=== PATIENT | male | born 1945 | race Caucasian/White ===

== ENCOUNTER → 2017-06-22 | Outpatient (CLI) | payer MEDICARE, OTHER ==
[~2017-06-22] MED LIST: ASPIRIN325 PO; ATENOLOL 50MG T50 M1 PO; ATORVASTATIN CA40 MG PO; FENOFIBRATE40 MG PO; FLEXERIL PO; HYDROCODONE-AP1 EAC6 PO; LISINOPRIL10 MG PO; NORVASC5 MG PO; OXYCODONE HCL 55 MG PO; SYNTHROID100 MCG PO; XANAX 0.5 MG0.5 MG PO
== END ==
LOC: M.MRI 07:38
DX: M54.16 Radiculopathy, lumbar region (principal); M51.26 Other intervertebral disc displacement, lumbar region; M47.896 Other spondylosis, lumbar region; M71.38 Other bursal cyst, other site; E03.9 Hypothyroidism, unspecified; I10 Essential (primary) hypertension; E78.5 Hyperlipidemia, unspecified; Z95.1 Presence of aortocoronary bypass graft; K40.90 Unilateral inguinal hernia, without obstruction or gangrene, not specified as recurrent

== ENCOUNTER → 2017-11-09 | Outpatient (CLI) | payer MEDICARE, OTHER ==
--- NOTE | 2017-11-29 13:50 | PAINCON ---
[address] [address] PAIN MANAGEMENT CONSULTATION Name: TRACY KWONG Brenton [facility] [id number] Admission: 11/09/17 Attend Phys: Lesia Zayas MD Discharge: Date of : 44 Report #: [id number] THIS REPORT FOR: //name// CC: Camron Zayas DATE OF SERVICE: 11/09/2017 CHIEF COMPLAINT: Pain in the middle back has been getting worse over the last 6 months. HISTORY OF PRESENT ILLNESS: The patient is a 72-year-old gentleman who has been referred to the pain clinic for evaluation. The patient states that he has been having some problems with his back. He described it as severe. It is worse with activities of daily living such as standing, walking, shaving, standing at the sink, standing in line in the shopping centers, and prolonged walking. Pain is better if he sits down after about 5-10 minutes. Notes that the pain can reoccur after he stands up for a period of time. Describes this discomfort as a 9/10. It significantly impacts his ability to engage in some activities. He has been told that he has had some stenosis in his back. He has not had back surgery. Notes that if he stands and leans forward that he has less pain and discomfort. Notes that if he walks in a forward leaning position that he has less discomfort and can walk for a longer period of time. He has had some numbness in his left leg. Epidural steroid injections at that time did decrease the pain and discomfort down in his left leg, but he still has a residual low back pain and discomfort. MEDICATIONS: Ramipril, simvastatin, alprazolam 0.5 mg b.i.d., Norvasc 5 mg at bedtime, aspirin 325 mg at bedtime, atenolol 50 mg b.i.d., Lipitor 40 mg at bedtime, Flexeril 10 mg b.i.d., hydrocodone 5/325 q.6 hours 2 tablets p.r.n. as needed, levothyroxine 0.1 mg, and Zestril 10 mg. PAST MEDICAL HISTORY: Anxiety, thyroid disease, GERD, hyperlipidemia, and hypertension. PAST SURGICAL HISTORY: Open heart surgery in 2001 and hernia repair in 2017. SOCIAL HISTORY: He is retired, not working at this juncture. Denies use of tobacco. Drinks about one alcoholic beverage per day. FAMILY HISTORY: Cancer in mother. REVIEW OF SYSTEMS: Twelve-point review. Generally in good health, recent weight changes, fatigue, wears glasses, blurred vision, hearing loss, heart trouble, shortness of breath with walking flat, swelling of ankles and feet, loss of appetite, frequent urination, awakens at night to urinate; [place] [address] PAIN MANAGEMENT CONSULTATION Name: TRACY KWONG Room: [facility]#: [id number] Admission: 11/09/17 Attend Phys: Lesia Zayas MD Discharge: Date of : 44 Report #: [id number] pain/joint stiffness/swelling, weakness of muscles and joint, muscle pain/cramping, back pain, difficulty walking, rash and itching, changes in hair and nails, numbness and tingling sensation, nervousness, and depression. LABORATORY DATA: MRI of the lumbar spine dated 06/22/2017: 1. There is a mild diffuse posterior disk bulge. There is ohhj-tr-pxbqoqcx bilateral facet arthrosis. There is no significant central canal stenosis or neural foraminal stenosis. 2. L2-L3. There is mild diffuse disk bulge. There is awojakys-mp-qthmiv bilateral facet arthrosis. There is no significant central canal stenosis. There is mild right and tcuq-cz-nnjgtzap medial left neural foraminal stenosis due to foraminal disk bulging and facet spurring. 3. L3-L4. There is mild diffuse disk bulge. There is severe bilateral facet arthrosis and spurring. There is no significant central canal stenosis. There is jheerbwj-aj-jpppcv right and qohyysnv-ho-sczhtx left neural foraminal stenosis due to facet spurring and foraminal disk bulging. 4. L4-L5. There is mild diffuse disk bulge. There is severe bilateral facet arthrosis. There is foraminal disk bulging and facet spurring resulting in moderate medial bilateral neural foraminal stenosis. There is a 4 x 5 x 6 mm synovial cyst projecting medially from the right facet joint effacing the descending right L5 and S1 nerve roots. 5. L5-S1. There is no significant disk bulge or protrusion identified. There is moderate bilateral facet arthrosis. PAIN CLINIC ASSESSMENT: 1. The patient has some arthritic changes in the lower portion of his back, is not being treated for rheumatoid arthritis. 2. Pain intensity 9/10. 3. Risks for falling. The patient has not fallen in the last 3 months. 4. Blood thinner. The patient is not on a blood thinning medication. 5. History of hypertension. The patient is being treated for hypertension. 6. Opioid greater than 6 weeks. The patient states that he has not been using hydrocodone significantly over the past 6 weeks. He has run out of medication. 7. Risk assessment tool, low for opioid use. 8. Recreational drug use. The patient denies use of recreational drugs. 9. Tobacco: The patient denies use of tobacco. 10. Alcohol: The patient drinks 1 alcoholic beverage daily. PHYSICAL EXAMINATION: VITAL SIGNS: Blood pressure 130/58, heart rate 90, respiratory rate 16, room air saturation 93%, and temperature 98.1 GENERAL: The patient is a well-developed white male. He appears his stated age. Affect is appropriate. He is alert and oriented x 3. Height 5 feet 9 inches, weight 192 pounds, and BMI is 28. HEENT: Normocephalic, atraumatic. Extraocular eye muscles intact. Hearing generally within normal limits. [place]uc[place] [address] PAIN MANAGEMENT CONSULTATION Name: TRACY KWONG Room: [facility]#: [id number] Admission: 11/09/17 Attend Phys: Lesia Zayas MD Discharge: Date of : 44 Report #: [id number] NECK: Without adenopathy or JVD. HEART: S1, S2, somewhat distant tones. LUNGS: Clear to auscultation without crackles or rales. A well-healed scar in the anterior sternal area. EXTREMITIES: Upper extremity, muscle strength is judged to be 5/5 for the upper extremity for a 72-year-old gentleman. No significant sensory changes are noted. ABDOMEN: Protuberant. MUSCULOSKELETAL: The patient walks with a forward leaning gait. He is not walking with a cane. Lower extremity muscle strength is judged to be generally 5/5 for the major muscle groups difficult to assess knee jerk or ankle jerks. Muscles appeared to be symmetrical and same with similar muscle bulk. The patient states that he was having pain that was radiating down into his right leg. That portion has improved since the epidural steroid injections. IMPRESSION: 1. History of lumbar radicular pain with spinal stenosis. The patient states that he has undergone a series of epidural steroid injections. He has noted that the pain from his low back area, which radiated down into his leg has improved. Still has some pain and discomfort, which is across the lower portion of his back. Pain is worse when he stands. 2. Hypertension. 3. Hypothyroidism. 4. Osteoarthritis of the spine with history of radiculopathy, generalized osteoarthritis. RECOMMENDATIONS: We discussed treatment options with the patient. We explained the pathophysiology, usual algorithm, and treatment of spinal stenosis. The patient states that he continues to have some back pain. He notes that if he leans forward that he has less pain and discomfort. Notes that when he sits down pain decreases. He seems to have a clear picture of pathophysiology of spinal stenosis. We showed him how that if he were to stand with 1 leg on a small step this would change ankle/tilt his pelvis, which could open up the spaces and enable him to stand for a longer period of time when he is trying to get activities done. The patient states that he has gone to the epidural steroid injections. Noted that the radicular pain improved, but still has pain when he is engaged in activities such as standing erect, shopping, and engaging in activities of daily living. The option of using pain medications to control the pain as reasonably as possible. If at some point the pain medications are no longer efficacious, the patient could seek the advice of a surgeon regarding the possibility of improving his condition. The patient has some concerns about use of hydrocodone. He states that he was unable to purchase it. States that it costs about $11 a month. He did not have the wherewithal to purchase it. At this juncture, he and I have come to the agreement that probably an epidural steroid injection would probably not provide any long-term benefit given that in the last 6 months he has had a series of epidural steroid injections. He did [address] [address] PAIN MANAGEMENT CONSULTATION Name: TRACY KWONG Room: [facility] Rickey.#: [id number] Admission: 11/09/17 Attend Phys: Lesia Zayas MD Discharge: Date of : 44 Report #: [id number] get relief from the radicular pain that was associated with his scoliosis, but continues to have the back pain that is associated with it. We would recommend that he continue on a more conservative approach using the hydrocodone. After he reaches a level that these medications are no longer effective and he is no longer able to participate in activities to the level that he would like, he should then consider a surgical option. <ELECTRONICALLY SIGNED> By: Lesia Zayas MD 11/29/17 1350 [id number]. David Zayas MD /[facility]
== END ==
LOC: M.PC 04:35
DX: M47.896 Other spondylosis, lumbar region (principal); I10 Essential (primary) hypertension; E03.9 Hypothyroidism, unspecified

== ENCOUNTER → 2018-03-01 | Outpatient (CLI) | payer MEDICARE, OTHER | LOC: M.RAD 09:28 | DX: M47.27 Other spondylosis with radiculopathy, lumbosacral region (principal); M41.86 Other forms of scoliosis, lumbar region; I10 Essential (primary) hypertension; E03.9 Hypothyroidism, unspecified; J98.4 Other disorders of lung; M48.061 Spinal stenosis, lumbar region without neurogenic claudication; M25.78 Osteophyte, vertebrae; M15.9 Polyosteoarthritis, unspecified; F41.1 Generalized anxiety disorder ==

== ENCOUNTER → 2018-04-30 | Outpatient (CLI) | payer MEDICARE, OTHER | LOC: M.MRI 07:52 | DX: M48.061 Spinal stenosis, lumbar region without neurogenic claudication (principal); M51.26 Other intervertebral disc displacement, lumbar region; M47.27 Other spondylosis with radiculopathy, lumbosacral region; E03.9 Hypothyroidism, unspecified; I10 Essential (primary) hypertension; G89.29 Other chronic pain; Z68.25 Body mass index [BMI] 25.0-25.9, adult ==

== ENCOUNTER → 2018-08-28 | Outpatient (CLI) | payer MEDICARE, OTHER ==
--- NOTE | ~2018-08-28 | PAINCON ---
[address] [address] PAIN MANAGEMENT CONSULTATION Name: TRACY KWONG Brenton Room: [facility] RickeyGeno#: [id number] Admission: 08/28/18 Attend Phys: Lesia Zayas MD Discharge: Date of : 44 Report #: [id number] THIS REPORT FOR: //name// CC: Camron Zayas DATE OF SERVICE: 08/28/2018 CHIEF COMPLAINT: Return of lumbar pain. FOLLOWUP HISTORY: The patient is a 73-year-old gentleman who has been seen in the Pain Clinic in the past and undergone an epidural steroid injection. He returns today indicating that he continues to have pain, which is still problematic. He rates his pain as a 6/10. He has had low back pain for years. He has not had surgery. Notes his pain is worse when he is getting up, getting off the bed is worse. Walking sometimes helps decrease his pain. Pain has increased since the last visit in 10/2017. He has returned today for an injection. Also, has some pain across the top of his pelvis. He feels that his medication of hydrocodone and Flexeril are beneficial. Feels that his pain is about 25%, controlled with his current regimen. ALLERGIES: SIMVASTATIN, RAMIPRIL. PAIN CLINIC ASSESSMENT AND PQRS: 1. The patient has some arthritic changes in the lower portion of his back. He is not being treated for rheumatoid arthritis. 2. Pain intensity is 6/10. 3. Fall history. The patient has not fallen in the last 3 months. 4. Blood thinner. The patient is not on a blood thinning medication. 5. Hypertension. The patient is being treated for hypertension. 6. Opioids greater than 6 weeks. The patient has been receiving his opioid medications from his primary. 7. Risk assessment tool, low for opioid use. 8. Recreational drug use. The patient denies use of recreational drugs. 9. Tobacco: The patient denies use of tobacco. 10. Alcohol: The patient drinks 1 alcoholic beverage daily. PHYSICAL EXAMINATION: GENERAL: The patient is a well-developed, well-nourished white male. Appears his stated age. He is alert and oriented x 3. His affect is appropriate. Speech is fluent. HEENT: Normocephalic, atraumatic. Extraocular eye muscles intact. Sclerae nonicteric. Mucous membranes are moist. NECK: Without adenopathy or JVD. HEART: Regular rate. S1, S2. Distant tones. LUNGS: Clear to auscultation without crackles or rales. [place] [address] PAIN MANAGEMENT CONSULTATION Name: TRACY KWONG Room: [facility]#: [id number] Admission: 08/28/18 Attend Phys: Lesia Zayas MD Discharge: Date of : 44 Report #: [id number] the anterior sternal area. ABDOMEN: Protuberant. Bowel sounds present. EXTREMITIES: Upper extremity muscle strength is judged to be 5-/5 for the major muscles in the upper extremity. MUSCULOSKELETAL: The patient walks with a forward leaning gait. Lower extremity muscle strength is judged to be 5-/5 for the major muscle groups in the lower extremity. The patient complains of pain and discomfort, which is radiating down into the L4-L5 dermatomal distribution. IMPRESSION: 1. History of lumbar radicular pain with spinal stenosis. 2. The patient has undergone epidural steroid injection in the past and found that these were beneficial. 3. Hypertension. 4. Hypothyroidism. 5. Osteoarthritis of the spine with history of radiculopathy and generalized osteoarthritis. RECOMMENDATIONS: We discussed treatment options with the patient. Risks and benefits of an epidural steroid injection were again discussed. He has gleaned benefits from these in the past. He has returned today with a desire to undergo another injection. A script for his medications of opioid will be provided by his primary. We will proceed with an epidural steroid injection. The risks and benefits which could include but are not limited to infection, worsening of pain, no improvement in pain, spinal headache, nerve damage, paralysis were discussed and the patient elects to proceed. PROCEDURE NOTE: The patient was taken to the procedure area. He was assisted in getting on the examination table. Fluoroscopy using anterior, posterior as well as lateral viewing were implemented. The patient's back was sterilely prepped with a Betadine solution. It was allowed to dry. A 25-gauge needle using the midline approach at the L4-L5 interspace was provided. A 17-gauge Tuohy with loss of resistance technique using a right paramedian approach was undertaken at L4-L5. Aspiration was negative. A total of 80 mg of Depo-Medrol, 40 mg of triamcinolone and 2 mL of 0.25% bupivacaine was injected. The patient tolerated the procedure well. There were no complications. He remained in the pain clinic for an appropriate amount of time. We would like to thank you for letting us participate in his care. We hope he continues to improve. By: [id number]. David Zayas MD /[facility]
== END | disposition home or self-care (01) ==
LOC: M.PC 08:40
DX: M54.16 Radiculopathy, lumbar region (principal); G89.29 Other chronic pain; M48.061 Spinal stenosis, lumbar region without neurogenic claudication; I10 Essential (primary) hypertension; E03.9 Hypothyroidism, unspecified; M19.90 Unspecified osteoarthritis, unspecified site; Z88.8 Allergy status to other drugs, medicaments and biological substances; Z79.899 Other long term (current) drug therapy; Z79.82 Long term (current) use of aspirin; Z98.890 Other specified postprocedural states

== ENCOUNTER → 2018-10-02 | Outpatient (CLI) | payer MEDICARE, OTHER ==
--- NOTE | ~2018-10-02 | PAINCON ---
[address] [address] PAIN MANAGEMENT CONSULTATION Name: TRACY KWONG Brenton [facility] [id number] Admission: 10/02/18 Attend Phys: Lesia Zayas MD Discharge: Date of : 44 Report #: [id number] THIS REPORT FOR: //name// CC: Camron Zayas DATE OF SERVICE: 10/02/2018 CHIEF COMPLAINT: Low back pain. The injection helped. I am having pain in the left leg. There is some discomfort in the right groin. Pain is 4/5 now. HISTORY: The patient is a 73-year-old gentleman who has been followed in the pain clinic because of lumbar radiculopathy. He is having some pain and discomfort in his low back area. The pain is radiating around into the anterior portion of his right groin. Notes that the pain is worse with walking, standing, and climbing stairs. He feels the pain improves with use of medications, heat, and rest. He feels that his pain is about 40% improved. He would like to proceed with another epidural steroid injection today. ALLERGIES: SIMVASTATIN AND RAMIPRIL. PAIN CLINIC ASSESSMENT AND PQRS: 1. The patient has some arthritic changes in the lower portion of his back. He has not been treated for rheumatoid arthritis. 2. Height 5 feet 9 inches, weight 159 pounds, BMI is 23.5. 3. Vital signs; blood pressure 111/64, heart rate 70, respiratory rate 16, room air saturation 96%, temperature 97.7. 4. ____ . 5. Fall history. The patient has not fallen in the last 3 months. 6. Blood thinner. The patient is not on a blood thinning medication. 7. Hypertension. The patient is being treated for hypertension. 8. Opioid greater than 6 weeks. The patient has been receiving medications from his primary. 9. Risk assessment tool, low for opioid use. 10. Recreational drug use. The patient denies use of recreational drugs. 11. Tobacco: The patient denies use of tobacco. 12. Alcohol: The patient drinks about 1 alcoholic beverage daily. PHYSICAL EXAMINATION: GENERAL: The patient is a well-developed, well-nourished white male. Appears his stated age. He is alert and oriented x 3. His affect is appropriate. Speech is fluent. HEENT: Normocephalic, atraumatic. Extraocular eye muscles intact. Sclerae nonicteric. Mucous membranes moist. NECK: Without adenopathy or JVD. HEART: Regular rate. S1, [place] [address] PAIN MANAGEMENT CONSULTATION Name: VARGHESERACQUEL MANCILLAJohan Farris Room: [facility]#: [id number] Admission: 10/02/18 Attend Phys: Lesia Zayas MD Discharge: Date of : 44 Report #: [id number] LUNGS: Clear to auscultation without rhonchi or rales well-healed scar in the anterior sternal area. ABDOMEN: Protuberant. Bowel sounds present. EXTREMITIES: Upper extremity muscle strength is judged to be 5-/5 for the major muscle groups in the upper extremity. MUSCULOSKELETAL: The patient walks with a forward leaning gait. Lower extremity muscle strength is judged to be 5-/5 for the major muscle groups in the lower extremity. The patient has pain and discomfort, which is radiating down into the anterior portion of his leg. He has had some pain in the past in the L4-L5 dermatomal distribution. IMPRESSION: 1. Spinal stenosis. 2. Hypertension. 3. Hypothyroidism. 4. Osteoarthritis of the spine with history of radiculopathy and generalized osteoarthritis. RECOMMENDATIONS: We discussed treatment options with the patient. The patient is having pain and discomfort in the area of the L2-L3 dermatomal distribution. Risk and benefits of an epidural steroid injection in this area were again reviewed. Possible complications of the procedure, which could include, but are not limited to infection, worsening of pain, no improvement in pain, increased pain were discussed and the patient elects to proceed. PROCEDURE NOTE: The patient was taken to the procedure area. He was assisted in getting on the examination table. His back was sterilely prepped with a Betadine solution. A 0.25% bupivacaine was infiltrated at the L2-L3 interspace. A 17-gauge Tuohy with loss of resistance technique using a midline approach was then undertaken and a total of 80 mg Depo-Medrol, 40 mg triamcinolone and 2 mL of 0.25% bupivacaine was injected. Total of 16 seconds fluoroscopy time was used. The patient tolerated the procedure well. There were no complications. He remained in the pain clinic for an appropriate amount of time. He will follow up in the future as needed. We would like to thank you for letting us participate in his care. We hope he continues to improve. By: [id number]. David Zayas MD /nina
== END | disposition home or self-care (01) ==
LOC: M.PC 05:19
DX: M54.16 Radiculopathy, lumbar region (principal); M48.061 Spinal stenosis, lumbar region without neurogenic claudication; G89.29 Other chronic pain; I10 Essential (primary) hypertension; E03.9 Hypothyroidism, unspecified; M19.90 Unspecified osteoarthritis, unspecified site; Z79.899 Other long term (current) drug therapy; Z98.890 Other specified postprocedural states; Z88.8 Allergy status to other drugs, medicaments and biological substances

== ENCOUNTER → 2018-10-30 | Outpatient (CLI) | payer MEDICARE, OTHER ==
[~2018-10-30] MED LIST changes: +KEFLEX500 M1 PO
--- NOTE | 2018-11-15 01:32 | PAINCON ---
[address] [address] PAIN MANAGEMENT CONSULTATION Name: TRACY KWONG Room: [facility].Marquise.#: [id number] Admission: 10/30/18 Attend Phys: Lesia Zayas MD Discharge: Date of : 44 Report #: [id number] THIS REPORT FOR: //name// CC: Camron Zayas DATE OF SERVICE: 10/30/2018 CHIEF COMPLAINT: Here for epidural injection. HISTORY: The patient is a 73-year-old gentleman who has been seen in the pain clinic in the past. He has had pain and discomfort in the left leg. He has undergone an epidural steroid injection. He has gleaned benefit from that. He feels that his pain was better and decreased by 50-60%. He has continued to have some low back pain. The right leg is more problematic than the left. He ambulates in such a fashion that he feels he puts more weight on his right leg than on the left while walking. Pain radiates down on the right side to the level of his knee. He has been using Egan and Flexeril to help control the pain. Notes that standing, walking, going from a sitting to a standing position can be problematic. ALLERGIES: SIMVASTATIN AND RAMIPRIL. PAIN CLINIC ASSESSMENT/PQRS: 1. The patient has some arthritic changes in the lower portion of his back. He has not been treated for rheumatoid arthritis. 2. Height 5 feet 9 inches, weight 156 pounds, BMI is 23.2. 3. Vital signs, blood pressure 129/69, heart rate 84, respiratory rate 16, room air saturation 92%, temperature 97.8. 4. Pain intensity /10. 5. Fall history, the patient has not fallen in the last 3 months. 6. Blood thinner, the patient is not on a blood thinning medication. 7. Opioids greater than 6 weeks, the patient receives medication from his primary. 8. Risk assessment tool, low for opioid use. 9. Recreational drug use, the patient denies use of recreational drugs. 10. Tobacco, the patient denies use of tobacco. 11. Alcohol, the patient drinks about one alcoholic beverage daily. PHYSICAL EXAMINATION: GENERAL: The patient is a well-developed, well-nourished white male. The patient appears as stated age of 73 years. He is alert and oriented x 3. Affect is appropriate. Speech is fluent. HEENT: Normocephalic, atraumatic. Extraocular eye muscles intact. Sclerae nonicteric. Mucous membranes moist. NECK: Without adenopathy or JVD. He has [place] [address] PAIN MANAGEMENT CONSULTATION Name: VARGHESETRACY RAYMUNDO Room: [facility]#: [id number] Admission: 10/30/18 Attend Phys: Lesia Zayas MD Discharge: Date of : 44 Report #: [id number] portion of his sternum. ABDOMEN: Protuberant. Bowel sounds present. EXTREMITIES: Upper extremity muscle strength judged to be 5-/5 for the major muscle groups in the upper extremity. MUSCULOSKELETAL: The patient walks with a forward lean. Has an antalgic gait. Complains of pain in the lower portion of his back, radiating down the L4-L5 dermatomal distribution. The patient has pain and discomfort today, which is most problematic in the L2-L3 interspace. Note some pain in the anterior portion of his leg. IMPRESSION: 1. History of spinal stenosis. 2. Hypertension. 3. Hypothyroidism. 4. Osteoarthritis of the spine with history of radiculopathy and generalized osteoarthritis, most problematic in the L2-L3 area today. RECOMMENDATIONS: We discussed treatment options with the patient. Risks and benefits of an epidural steroid injection were discussed. They include but are not limited to infection, worsening pain, no improvement in pain, nerve damage, bleeding, paralysis and the patient elects to proceed. PROCEDURE NOTE: The patient was taken to the procedure area. He was assisted in getting on the examination table. His back was sterilely prepped with a Betadine solution. A 0.25% bupivacaine was infiltrated. A 17-gauge Tuohy with loss of resistance technique was used to gain access to the epidural space at the L2-L3 area. The patient has numbness and tingling in this area on the left. A 17-gauge Tuohy with loss of resistance technique was used to gain access to the epidural space. There was no CSF, heme or paresthesia. Total of 80 mg Depo-Medrol, 40 mg triamcinolone and 2 mL of 0.25% bupivacaine was injected. The patient tolerated the procedure well. There were no complications. He remained in the pain clinic for an appropriate amount of time. He will follow up in the future as needed. We would like to thank you for letting us participate in his care. We hope he continues to improve. <ELECTRONICALLY SIGNED> By: Lesia Zayas MD 11/15/18 0132 [id number]. David Zayas MD /nt
== END | disposition home or self-care (01) ==
LOC: M.PC 07:11
DX: M47.26 Other spondylosis with radiculopathy, lumbar region (principal); G89.29 Other chronic pain; I10 Essential (primary) hypertension; E03.9 Hypothyroidism, unspecified; Z98.890 Other specified postprocedural states; Z79.899 Other long term (current) drug therapy; Z88.8 Allergy status to other drugs, medicaments and biological substances

== ENCOUNTER 2018-11-04 14:13 | Emergency (ER) | payer MEDICARE, OTHER ==
[~2018-11-04] VITALS: Ht 175.3 cm; Wt 70.8 kg
[~2018-11-04 14:13] MED LIST changes: -KEFLEX500 M1 PO
[2018-11-04] MEDS ORDERED: KEFLEX500 M1 PO (15:04)
[2018-11-04 15:12] VITALS: BP 138/70
== END 2018-11-04 15:13 | disposition home or self-care (01) ==
LOC: M.ERS 14:13
DX: S61.216A Laceration without foreign body of right little finger without damage to nail, initial encounter (principal); Z88.8 Allergy status to other drugs, medicaments and biological substances; W26.8XXA Contact with other sharp object(s), not elsewhere classified, initial encounter; Y93.89 Activity, other specified; Y92.89 Other specified places as the place of occurrence of the external cause; Y99.8 Other external cause status

== ENCOUNTER → 2019-03-25 | Outpatient (CLI) | payer MEDICARE, OTHER ==
[~2019-03-25] MED LIST changes: +KEFLEX500 M1 PO
== END ==
LOC: M.ULTRA 12:27
DX: M47.816 Spondylosis without myelopathy or radiculopathy, lumbar region (principal); M25.78 Osteophyte, vertebrae; I70.0 Atherosclerosis of aorta; I10 Essential (primary) hypertension; E03.9 Hypothyroidism, unspecified; M41.86 Other forms of scoliosis, lumbar region; M17.12 Unilateral primary osteoarthritis, left knee; M16.0 Bilateral primary osteoarthritis of hip; M25.852 Other specified joint disorders, left hip; M25.752 Osteophyte, left hip; M79.89 Other specified soft tissue disorders; Z88.8 Allergy status to other drugs, medicaments and biological substances